=== PATIENT | female | born 1955 | race Caucasian/White ===

== ENCOUNTER 2017-05-31 19:12 | Emergency (ER) | payer MEDICAID ==
[~2017-05-31] VITALS: Ht 152.4 cm; Wt 129.2 kg
[~2017-05-31 19:12] MED LIST: ACCUPRIL10 MG PO; GLIPIZIDE5 MG PO; LORTAB 7.5-3251 TAB PO; METFORMIN500 MG PO; METFORMIN850 MG PO; VANCOMYCIN HCL1 GM IV
[2017-05-31 20:15] LABS: HEMATOCRIT 37.8 % (37.0-47.0); HEMOGLOBIN 12.5 g/dl (12.0-16.0); IMMATURE GRANULOCYTES 0.3 % (0.0-1.0); MEAN CELL VOLUME 85.5 fL CALC (80.0-100.0); MEAN CORPUSCULAR HGB 28.3 pG CALC (26.0-32.0); MEAN CORPUSCULAR HGB CONC 33.1 g/L CALC (32.0-36.0); NEUT# 3.84 thou/uL (2.00-7.15); RED BLOOD COUNT 4.42 mill/uL (4.20-5.60); RED CELL DISTRI WIDTH 13.5 % (11.5-15.5)
[2017-05-31 20:17] LABS: URINE BILIRUBIN - DIPSTICK NEGATIVE (NEGATIVE); URINE BLOOD DIPSTICK TRACE-LYSED (NEGATIVE); URINE COLOR YELLOW; URINE GLUCOSE - DIPSTICK NEGATIVE (NEGATIVE); URINE KETONE NEGATIVE (NEGATIVE); URINE LEUK ESTERASE NEGATIVE (NEGATIVE); URINE NITRITE - DIPSTICK NEGATIVE (Negative); URINE PH 6.5 (4.5-8.0); URINE PROTEIN - DIPSTICK 30 mg/dL (NEG-TRACE); URINE SPECIFIC GRAVITY 1.025
[2017-05-31 20:18] LABS: URINE CLARITY CLEAR
[2017-05-31 20:25] LABS: URINE RBC 0-2 RBC/hpf (0-5); URINE SQUAMOUS EPITHELIAL CELL FEW EPI/hpf (0-FEW)
[2017-05-31 20:27] LABS: ALBUMIN 4.6 g/dL (3.2-5.0); ALKALINE PHOSPHATASE 85 u/l (38-126); ANION GAP 16 (6-22 (CALC)); BILIRUBIN, TOTAL 0.4 mg/dL (0.0-1.4); BUN 31 mg/dL (7-17); BUN/CREATININE RATIO 29 (12-20 (CALC)); CARBON DIOXIDE 29 mmol/l (22-30); CHLORIDE 104 mmol/l (95-108); CREATININE 1.1 mg/dL (0.5-1.0); GFR 51 ML/MIN (>=60 (CALC)); GFR FOR AFR.AMER. > 60 ML/MIN (>=60 (CALC)); POTASSIUM 4.7 mmol/l (3.5-5.1); SGOT/AST 28 u/l (14-36); SGPT/ALT 27 u/l (9-52); SODIUM 144 mmol/l (137-146); TOTAL PROTEIN 8.2 g/dL (6.3-8.2)
[2017-05-31 20:39] LABS: MYOGLOBIN 56 ng/mL (0 - 62)
[2017-06-01 00:25] VITALS: BP 198/86
== END 2017-06-01 00:37 | disposition home or self-care (01) | DRG 305 ==
LOC: ED 19:12
PROVIDERS: Emergency Medicine
DX: I10 Essential (primary) hypertension (principal)

== ENCOUNTER 2022-07-22 16:08 | Observation (INO) | payer MEDICARE, MEDICAID ==
[2022-07-22] VITALS (15 sets, daily range): BP systolic 101–189; BP diastolic 33–84
[~2022-07-22] VITALS: Ht 165.1 cm; Wt 125.4 kg
[2022-07-22 16:42] LABS: BASO% 0.7 % (0-3); EOS% 1.9 % (0-8); IMMATURE GRANULOCYTES 0.2 % (0.0-5.0); LYMPH% 12.5 % (15-41); MEAN CORPUSCULAR HGB 29.4 pG CALC (26.0-32.0); MEAN CORPUSCULAR HGB CONC 31.9 g/dL CAL (32.0-36.0); MONO% 9.1 % (2-13); NEUT# 4.06 thou/uL (2.00-7.15); NEUT% 75.6 % (42-76); RED BLOOD COUNT 3.37 mill/uL (4.20-5.60); RED CELL DISTRI WIDTH 14.6 % (11.5-15.5)
[2022-07-22 16:43] LABS: HEMOGLOBIN 9.9 g/dl (12.0-16.0)
[2022-07-22 16:55] LABS: ALBUMIN 4.3 g/dL (3.2-5.0); ALKALINE PHOSPHATASE 62 u/l (38-126); ANION GAP 16 (6-22 (CALC)); BILIRUBIN, TOTAL 0.5 mg/dL (0.02-1.3); BUN 58 mg/dL (8-23); CARBON DIOXIDE 25 mmol/l (22-30); CHLORIDE 105 mmol/l (95-108); LIPASE 101 u/l (23-300); SGOT/AST 21 u/l (9-36); SODIUM 140 mmol/l (137-146); TOTAL PROTEIN 7.5 g/dL (6.3-8.2)
[2022-07-22 16:56] LABS: BUN/CREATININE RATIO 22 (12-20 (CALC)); CREATININE 2.6 mg/dL (0.5-1.0); GFR FOR AFR.AMER. 22 ML/MIN (>=60 (CALC)); GFR OTHER RACES 19 ML/MIN (>=60 (CALC)); POTASSIUM 5.6 mmol/l (3.5-5.1)
[2022-07-22] MEDS ORDERED: ELIQUIS5 MG PO (17:06)
[2022-07-22] MEDS ORDERED: CARVEDILOL6.25 MG PO (23:58)
[2022-07-22] MEDS ORDERED: ALDACTONE25 MG PO (23:58)
[2022-07-22] MEDS ORDERED: ATORVASTATIN CA40 MG PO (23:58)
[2022-07-22] MEDS ORDERED: PANTOPRAZOLE SO40 M1 PO (23:59)
[2022-07-22] MEDS ORDERED: LASIX 40 MG TAB40 MG PO (23:59)
[2022-07-23] VITALS (12 sets, daily range): BP systolic 112–168; BP diastolic 32–64
[2022-07-23 06:52] LABS: BASO% 0.8 % (0-3); EOS% 2.1 % (0-8); HEMATOCRIT 31.4 % (37.0-47.0); HEMOGLOBIN 9.8 g/dl (12.0-16.0); IMMATURE GRANULOCYTES 0.6 % (0.0-5.0); LYMPH% 14.9 % (15-41); MEAN CELL VOLUME 91.8 fL CALC (80.0-100.0); MEAN CORPUSCULAR HGB 28.7 pG CALC (26.0-32.0); MEAN CORPUSCULAR HGB CONC 31.2 g/dL CAL (32.0-36.0); MONO% 10.4 % (2-13); NEUT# 3.78 thou/uL (2.00-7.15); NEUT% 71.2 % (42-76); RED BLOOD COUNT 3.42 mill/uL (4.20-5.60); RED CELL DISTRI WIDTH 14.7 % (11.5-15.5)
[2022-07-23 07:09] LABS: ALBUMIN 3.8 g/dL (3.2-5.0); BILIRUBIN, TOTAL 0.5 mg/dL (0.02-1.3); MAGNESIUM 1.7 mg/dL (1.6-2.3); TOTAL PROTEIN 6.8 g/dL (6.3-8.2)
[2022-07-24 04:00] VITALS: BP 149/38
[2022-07-24 04:28] VITALS: BP 149/38
[2022-07-24 05:32] LABS: BASO% 0.7 % (0-3); EOS% 2.4 % (0-8); HEMATOCRIT 35.6 % (37.0-47.0); HEMOGLOBIN 10.9 g/dl (12.0-16.0); IMMATURE GRANULOCYTES 0.2 % (0.0-5.0); LYMPH% 16.4 % (15-41); MEAN CORPUSCULAR HGB 29.4 pG CALC (26.0-32.0); MEAN CORPUSCULAR HGB CONC 30.6 g/dL CAL (32.0-36.0); MONO% 9.9 % (2-13); NEUT# 3.79 thou/uL (2.00-7.15); NEUT% 70.4 % (42-76); RED BLOOD COUNT 3.71 mill/uL (4.20-5.60); RED CELL DISTRI WIDTH 14.8 % (11.5-15.5)
[2022-07-24 05:48] LABS: CREATININE 1.4 mg/dL (0.5-1.0); MAGNESIUM 1.6 mg/dL (1.6-2.3)
[2022-07-24 06:00] LABS: POTASSIUM 5.1 mmol/l (3.5-5.1)
[2022-07-24 07:25] VITALS: BP 151/54
[2022-07-24 08:20] VITALS: BP 151/54
== END 2022-07-24 11:21 | disposition home or self-care (01) ==
LOC: ED 16:08 → MS2 20:44
PROVIDERS: Family Medicine; Nurse Practitioner; ADMIT Internal Medicine; ATTEND Internal Medicine
DX: I95.1 Orthostatic hypotension (principal); N17.9 Acute kidney failure, unspecified; E86.0 Dehydration; E87.5 Hyperkalemia; I11.0 Hypertensive heart disease with heart failure; I50.9 Heart failure, unspecified; E11.9 Type 2 diabetes mellitus without complications; I25.10 Atherosclerotic heart disease of native coronary artery without angina pectoris; D64.9 Anemia, unspecified; Z20.822 Contact with and (suspected) exposure to COVID-19